=== PATIENT | male | born 1975 ===

== ENCOUNTER 2024-01-25 09:12 | Day surgery (SDC) | payer OTHER ==
[2024-01-21 16:21] VITALS: BP 130/65
[~2024-01-25] VITALS: Ht 177.8 cm; Wt 97.1 kg
[~2024-01-25 09:12] MED LIST: LIPOFEN150 MG PO; ROSUVASTATIN CAL5 MG PO
[2024-01-25 09:35] LABS: PARTIAL THROMBOPLASTIN TIME 25.7 SECONDS (22.0-34.0); PROTHROMBIN TIME 10.9 SECONDS (9.0-11.5)
[2024-01-25] MEDS ORDERED: MORPHINE SULFATE 4 MG/ML VIAL IV ONE (18:15)
[2024-01-25] MEDS ORDERED: CEFAZOLIN SODIUM 1,000 MG VIAL IV ONE ×2 (18:15→18:30)
[2024-01-25] MEDS ORDERED: BUPIVACAINE HCL 30 ML VIAL IJ ONE (18:15)
[2024-01-25] MEDS ORDERED: EPINEPHRINE HCL/PF 1 MG/ML AMPUL IR ONE (18:15)
[2024-01-25] MEDS ORDERED: METHYLPREDNISOLONE ACETATE 80 MG/ML VIAL IJ ONE (18:15)
[2024-01-25] MEDS ORDERED: LIDOCAINE HCL 1% 20ML VIAL IJ ONE (18:15)
[2024-01-25] MEDS ORDERED: CEFADROXIL 500 MG CAPSULE PO SCH (18:18)
[2024-01-25] MEDS ORDERED: DUI500 PO (18:22)
[2024-01-25] MEDS ORDERED: TRAM1TAB98 PO (18:22)
[2024-01-25] MEDS ORDERED: MEPERIDINE HCL/PF 25 MG/ML VIAL IM PRN (18:30)
[2024-01-25] MEDS ORDERED: PROMETHAZINE HCL 25 MG/ML AMPUL IM PRN (18:30)
== END 2024-01-25 23:40 | disposition home or self-care (01) ==
LOC: CIR.AMB 09:12
PROVIDERS: ATTEND Orthopaedic Surgery Sports Medicine
DX: S83.232A Complex tear of medial meniscus, current injury, left knee, initial encounter (principal); M17.12 Unilateral primary osteoarthritis, left knee; M65.862 Other synovitis and tenosynovitis, left lower leg